=== PATIENT | female | born 1965 | race Caucasian/White ===

== ENCOUNTER 2017-12-08 11:57 | Emergency (ER) | payer MEDICARE, OTHER ==
[~2017-12-08] VITALS: Ht 167.6 cm; Wt 63.6 kg
[~2017-12-08 11:57] MED LIST: BACIO TP; BUPR-93 PO; BUSP15 PO; FLUT16H NASAL; HYDR25TA PO; LORA10TA7 PO; LUBI24CA2 PO; METO25 PO; MULT-29 GT; OMEG1CAP6 PO; PANT40TA25 PO; QUET100T PO
[2017-12-08 13:03] LABS: GLUCOSE,POINT OF CARE 94 MG/DL (70-110)
[2017-12-08] MEDS ORDERED: CLON.5 PO (13:16)
[2017-12-08] MEDS ORDERED: TRIH2TAB3 PO (13:16)
[2017-12-08] MEDS ORDERED: ASPI81TA42 PO (13:16)
[2017-12-08] MEDS ORDERED: TRAZ-147 PO (13:16)
[2017-12-08] MEDS ORDERED: AMANL PO (13:16)
[2017-12-08] MEDS ORDERED: GEMF600T3 PO (13:16)
[2017-12-08] MEDS ORDERED: LINA145C PO (13:16)
[2017-12-08] MEDS ORDERED: TAMO10 PO (13:16)
[2017-12-08 13:46] LABS: BASOPHILS % (AUTO) 0.5 % (0.0-2.0); EOSINOPHILS % (AUTO) 0.3 % (1.0-6.0); HEMATOCRIT 44.6 % (36-46); HEMOGLOBIN 15.7 g/dL (12.0-16.0); LYMPHOCYTES # (AUTO) 1.5 K/uL (1.0-4.8); LYMPHOCYTES % (AUTO) 15.3 % (22.0-44.0); MEAN CORPUSCULAR HEMOGLOBIN 30.1 pg (26.0-34.0); MEAN CORPUSCULAR HGB CONC 35.2 G/dL (31.0-37.0); MEAN CORPUSCULAR VOLUME 86 fL (80-100); MONOCYTES # (AUTO) 0.7 K/uL (0.1-1.0); MONOCYTES % (AUTO) 7.4 % (2.0-9.0); NEUTROPHILS # (AUTO) 7.5 K/uL (1.8-7.7); NEUTROPHILS % (AUTO) 76.5 % (40.0-70.0); PLATELET COUNT (AUTO) 234 K/uL (150-450); RED BLOOD CELL COUNT(AUTO) 5.21 MIL/uL (4.00-5.20); RED CELL DISTRIBUTION WIDTH 14.7 % (11.5-14.5)
[2017-12-08 14:06] LABS: ALBUMIN 3.7 g/dL (3.4-5.0); BILIRUBIN,TOTAL 0.5 mg/dL (0.1-1.0); CALCIUM, TOTAL 9.5 mg/dL (8.8-10.5); CREATININE 1.17 mg/dL (0.60-1.30); TOTAL PROTEIN, SERUM 7.8 g/dL (6.4-8.2)
[2017-12-08 14:12] LABS: POTASSIUM 2.9 mmol/L (3.5-5.1)
[2017-12-08 14:29] LABS: APPEARANCE,URINE CLOUDY (CLEAR); BILIRUBIN,URINE NEGATIVE (NEGATIVE); GLUCOSE, URINE (UA) NEGATIVE (NEGATIVE); KETONES,URINE NEGATIVE (NEGATIVE); LEUKOCYTE ESTERASE ,URINE SMALL (NEGATIVE); NITRATE,URINE NEGATIVE (NEGATIVE); OCCULT BLOOD,URINE LARGE (NEGATIVE); PH,URINE 6.5 (5.0-8.0); PROTEIN,URINE NEGATIVE (NEGATIVE); UROBILINOGEN,URINE 0.2 mg/dL (<=1.0)
[2017-12-08 14:42] LABS: BACTERIA,URINE Few /HPF (None Seen); SQUAMOUS EPITHELIAL CELL,UR Moderate /LPF (None Seen)
[2017-12-08 14:44] LABS: RBC,URINE 0-2 /HPF (0-2)
[2017-12-08] MEDS ORDERED: POTASSIUM CHLORIDE 20 MEQ ER TABLET PO ONE (15:30)
[2017-12-08] MEDS: POTASSIUM CHL 10 MEQ/WATER 50 ML IV SCH ×2 (15:59→17:03)
[2017-12-08] MEDS ORDERED: CloNIDine HCL 0.2 MG TABLET PO ONE (16:00)
[2017-12-08] MEDS ORDERED: SODIUM CHLORIDE 0.9% 250 ML IV ONE ×2 (16:07→17:02)
[2017-12-08 19:50] VITALS: BP 127/89
== END 2017-12-08 20:19 | disposition home or self-care (01) ==
LOC: EMS 12:02
DX: E87.6 Hypokalemia (principal); R53.1 Weakness; E78.00 Pure hypercholesterolemia, unspecified; F41.9 Anxiety disorder, unspecified; I10 Essential (primary) hypertension; Z79.82 Long term (current) use of aspirin; Z85.3 Personal history of malignant neoplasm of breast; Z88.0 Allergy status to penicillin; Z79.899 Other long term (current) drug therapy; F31.9 Bipolar disorder, unspecified
CPT/HCPCS: 36415; 80053; 81001; 82948; 82962; 83880; 84484; 85025; 87086; 93005; 96365; 99285; J3480; J7050

== ENCOUNTER 2017-12-10 14:51 | Inpatient (IN) | payer MEDICARE, MEDICAID ==
[~2017-12-10 14:51] MED LIST changes: +AMANL PO; +ASPI81TA42 PO; -BACIO TP; -BUPR-93 PO; +CLON.5 PO; +GEMF600T3 PO; -HYDR25TA PO; +LINA145C PO; -LUBI24CA2 PO; -MULT-29 GT; +MULT-29 PO; +TAMO10 PO; +TRAZ-147 PO; +TRIH2TAB3 PO
[2017-12-10 14:53] VITALS: BP 140/92
[2017-12-10] MEDS ORDERED: ZOLPIDEM TARTRATE 5 MG TABLET PO PRN (15:45)
[2017-12-10] MEDS: BusPIRone HCL 15 MG TABLET PO SCH (18:50)
[2017-12-10] MEDS: ClonazePAM 0.5 MG TABLET PO SCH (18:50)
[2017-12-10 19:15] VITALS: BP 148/98
[2017-12-10] MEDS ORDERED: PNEUMOCOCCAL VACCINE POLYVALENT 0.5 ML VIAL [PPSV23] IM ONE ×2 (19:30→20:15)
[2017-12-10] MEDS ORDERED: INFLUENZA VIRUS VACCINE QVS 2017-18 (3YR+)/PF 60 MCG/0.5 ML SYRINGE IM ONE (20:15)
[2017-12-10] MEDS: TraZODone HCL 100 MG TABLET PO SCH (20:21)
[2017-12-10] MEDS: QUEtiapine FUMARATE 200 MG TABLET PO SCH (20:21)
[2017-12-11 02:03] VITALS: BP 128/78
[2017-12-11 04:14] VITALS: BP 118/78
[2017-12-11] MEDS: LORazepam 0.5 MG TABLET PO PRN ×2 (04:25→23:37)
[2017-12-11] MEDS ORDERED: ACETAMINOPHEN 500 MG TABLET PO PRN (07:45)
[2017-12-11 08:20] LABS: BASOPHILS % (AUTO) 0.5 % (0.0-2.0); EOSINOPHILS % (AUTO) 1.1 % (1.0-6.0); HEMOGLOBIN 14.4 g/dL (12.0-16.0); LYMPHOCYTES # (AUTO) 1.2 K/uL (1.0-4.8); LYMPHOCYTES % (AUTO) 17.7 % (22.0-44.0); MEAN CORPUSCULAR HEMOGLOBIN 29.8 pg (26.0-34.0); MEAN CORPUSCULAR HGB CONC 34.3 G/dL (31.0-37.0); MEAN CORPUSCULAR VOLUME 87 fL (80-100); MONOCYTES # (AUTO) 0.6 K/uL (0.1-1.0); MONOCYTES % (AUTO) 9.5 % (2.0-9.0); NEUTROPHILS # (AUTO) 4.8 K/uL (1.8-7.7); NEUTROPHILS % (AUTO) 71.2 % (40.0-70.0); PLATELET COUNT (AUTO) 223 K/uL (150-450); RED BLOOD CELL COUNT(AUTO) 4.83 MIL/uL (4.00-5.20); RED CELL DISTRIBUTION WIDTH 14.8 % (11.5-14.5)
[2017-12-11 08:26] LABS: AMPHET/METH SCREEN,URINE NEGATIVE (NEGATIVE); BARBITURATE SCREEN, URINE NEGATIVE (NEGATIVE); BENZODIAZEPINES SCREEN,URINE NEGATIVE (NEGATIVE); CANNABINOID SCREEN,URINE NEGATIVE (NEGATIVE); COCAINE SCREEN,URINE NEGATIVE (NEGATIVE); METHADONE SCREEN, URINE NEGATIVE (NEGATIVE); OPIATE SCREEN,URINE NEGATIVE (NEGATIVE)
[2017-12-11 08:28] LABS: PHENCYCLIDINE SCREEN,URINE NEGATIVE (NEGATIVE)
[2017-12-11 08:41] VITALS: BP 119/89
[2017-12-11 08:45] LABS: ALBUMIN 3.5 g/dL (3.4-5.0); BILIRUBIN,TOTAL 0.4 mg/dL (0.1-1.0); CALCIUM, TOTAL 9.2 mg/dL (8.8-10.5); CHOL/HDL RATIO 4.3 (3.9-5.7); CREATININE 1.01 mg/dL (0.60-1.30); FREE T4 (FREE THYROXINE) 1.08 ng/dL (0.76-1.46); POTASSIUM 4.2 mmol/L (3.5-5.1); THYROID STIMULATING HORMONE 0.46 uIU/mL (0.36-3.74); TOTAL PROTEIN, SERUM 7.2 g/dL (6.4-8.2)
[2017-12-11] MEDS: ClonazePAM 0.5 MG TABLET PO SCH ×3 (08:53→17:00)
[2017-12-11] MEDS: BusPIRone HCL 15 MG TABLET PO SCH ×2 (08:53→17:00)
[2017-12-11] MEDS: ACETAMINOPHEN 325 MG TABLET PO PRN (08:54)
[2017-12-11 09:04] LABS: HEMOGLOBIN A1C 5.4 % (4.5-6.2)
[2017-12-11] MEDS: AMANTADINE HCL 100 MG CAPSULE PO SCH ×2 (11:00→17:00)
[2017-12-11 13:58] VITALS: BP 162/93
[2017-12-11] MEDS: IBUPROFEN 400 MG TABLET PO PRN (13:58)
[2017-12-11] MEDS: QUEtiapine FUMARATE 200 MG TABLET PO SCH (22:30)
[2017-12-11] MEDS: TraZODone HCL 100 MG TABLET PO SCH (22:30)
[2017-12-11 22:55] VITALS: BP 153/93
[2017-12-12 01:09] VITALS: BP 163/90
[2017-12-12 07:47] LABS: ANION GAP 9 mmol/L (8-16); CARBON DIOXIDE 23 mmol/L (22-29); CHLORIDE 109 mmol/L (98-107); CREATININE 0.89 mg/dL (0.60-1.30); GLOMERULAR FILTR. RATE CALC > 60 mL/min (>60); GLUCOSE,RANDOM 87 mg/dL (70-110); POTASSIUM 3.9 mmol/L (3.5-5.1); SODIUM SERUM 141 mmol/L (136-145); UREA NITROGEN, BLOOD 14 mg/dL (7-18)
[2017-12-12] MEDS: BusPIRone HCL 15 MG TABLET PO SCH ×2 (09:22→17:11)
[2017-12-12] MEDS: ClonazePAM 0.5 MG TABLET PO SCH ×3 (09:22→17:13)
[2017-12-12] MEDS: LISINOPRIL 10 MG TABLET PO SCH (09:22)
[2017-12-12] MEDS: AMANTADINE HCL 100 MG CAPSULE PO SCH ×2 (09:23→17:11)
[2017-12-12] MEDS: CEPHALEXIN MONOHYDRATE 500 MG CAPSULE PO SCH ×2 (09:23→17:12)
[2017-12-12 10:20] VITALS: BP 125/93
[2017-12-12] MEDS: DOCUSATE SODIUM 250 MG CAPSULE PO SCH (14:56)
[2017-12-12 16:04] VITALS: BP 138/88
[2017-12-12] MEDS ORDERED: OMEG-135 PO (17:03)
[2017-12-12] MEDS ORDERED: AMAN100C12 PO (17:03)
[2017-12-12] MEDS ORDERED: QUET200T PO (17:03)
[2017-12-12] MEDS: TAMOXIFEN CITRATE 10 MG TABLET PO SCH (18:19)
[2017-12-12] MEDS: QUEtiapine FUMARATE 200 MG TABLET PO SCH (20:43)
[2017-12-12] MEDS: TraZODone HCL 100 MG TABLET PO SCH (20:43)
[2017-12-13 06:22] VITALS: BP 112/67
[2017-12-13] MEDS: DOCUSATE SODIUM 250 MG CAPSULE PO SCH (07:41)
[2017-12-13] MEDS: LISINOPRIL 10 MG TABLET PO SCH (07:41)
[2017-12-13] MEDS: CEPHALEXIN MONOHYDRATE 500 MG CAPSULE PO SCH ×2 (07:41→16:30)
[2017-12-13] MEDS: ClonazePAM 0.5 MG TABLET PO SCH ×3 (07:42→16:30)
[2017-12-13] MEDS: BusPIRone HCL 15 MG TABLET PO SCH ×2 (07:42→16:30)
[2017-12-13] MEDS: AMANTADINE HCL 100 MG CAPSULE PO SCH ×2 (07:42→16:30)
[2017-12-13] MEDS: IBUPROFEN 400 MG TABLET PO PRN (07:44)
[2017-12-13] MEDS: QUEtiapine FUMARATE 100 MG TABLET PO PRN ×2 (07:52→13:53)
[2017-12-13] MEDS: LORazepam 0.5 MG TABLET PO PRN ×2 (07:52→19:27)
[2017-12-13] MEDS: TAMOXIFEN CITRATE 10 MG TABLET PO SCH (10:32)
[2017-12-13 10:42] VITALS: BP 127/87
[2017-12-13 16:03] VITALS: BP 137/75
[2017-12-13] MEDS: TraZODone HCL 100 MG TABLET PO SCH (20:51)
[2017-12-13] MEDS: QUEtiapine FUMARATE 200 MG TABLET PO SCH (20:51)
[2017-12-14 06:34] VITALS: BP 130/84
[2017-12-14] MEDS: ACETAMINOPHEN 325 MG TABLET PO PRN (06:50)
[2017-12-14] MEDS: AMANTADINE HCL 100 MG CAPSULE PO SCH ×2 (09:32→18:17)
[2017-12-14] MEDS: BusPIRone HCL 15 MG TABLET PO SCH ×2 (09:32→16:38)
[2017-12-14] MEDS: TAMOXIFEN CITRATE 10 MG TABLET PO SCH (09:33)
[2017-12-14] MEDS: ClonazePAM 0.5 MG TABLET PO SCH ×3 (09:36→16:38)
[2017-12-14] MEDS: DOCUSATE SODIUM 250 MG CAPSULE PO SCH (09:38)
[2017-12-14] MEDS: CEPHALEXIN MONOHYDRATE 500 MG CAPSULE PO SCH ×2 (09:38→16:39)
[2017-12-14] MEDS: LISINOPRIL 10 MG TABLET PO SCH (09:39)
[2017-12-14] MEDS: IBUPROFEN 400 MG TABLET PO PRN (09:52)
[2017-12-14] MEDS: LORazepam 0.5 MG TABLET PO PRN (11:30)
[2017-12-14] MEDS: QUEtiapine FUMARATE 100 MG TABLET PO PRN (11:34)
[2017-12-14] MEDS: MAGNESIUM CITRATE 300 ML ORAL SOLUTION PO PRN (12:16)
[2017-12-14 16:06] VITALS: BP 112/76
[2017-12-14] MEDS: QUEtiapine FUMARATE 200 MG TABLET PO SCH (20:25)
[2017-12-15] MEDS: CEPHALEXIN MONOHYDRATE 500 MG CAPSULE PO SCH ×2 (09:26→16:13)
[2017-12-15] MEDS: ClonazePAM 0.5 MG TABLET PO SCH ×3 (09:26→16:14)
[2017-12-15] MEDS: DOCUSATE SODIUM 250 MG CAPSULE PO SCH (09:28)
[2017-12-15] MEDS: BusPIRone HCL 15 MG TABLET PO SCH ×2 (09:29→16:14)
[2017-12-15] MEDS: TAMOXIFEN CITRATE 10 MG TABLET PO SCH (09:30)
[2017-12-15] MEDS: AMANTADINE HCL 100 MG CAPSULE PO SCH ×2 (09:31→16:14)
[2017-12-15] MEDS: LISINOPRIL 10 MG TABLET PO SCH (09:32)
[2017-12-15 13:34] VITALS: BP 119/60
[2017-12-15] MEDS: PROPRANOLOL HCL 10 MG TABLET PO SCH (16:14)
[2017-12-15 16:19] VITALS: BP 149/90
[2017-12-15] MEDS: QUEtiapine FUMARATE 200 MG TABLET PO SCH (20:34)
[2017-12-16] MEDS: QUEtiapine FUMARATE 100 MG TABLET PO PRN (08:35)
[2017-12-16] MEDS: ClonazePAM 0.5 MG TABLET PO SCH ×3 (08:39→17:18)
[2017-12-16] MEDS: DOCUSATE SODIUM 250 MG CAPSULE PO SCH (08:40)
[2017-12-16] MEDS: PROPRANOLOL HCL 10 MG TABLET PO SCH ×2 (08:41→17:18)
[2017-12-16] MEDS: BusPIRone HCL 15 MG TABLET PO SCH ×2 (08:41→17:19)
[2017-12-16] MEDS: CEPHALEXIN MONOHYDRATE 500 MG CAPSULE PO SCH ×2 (08:41→17:19)
[2017-12-16] MEDS: TAMOXIFEN CITRATE 10 MG TABLET PO SCH (08:42)
[2017-12-16] MEDS: LORazepam 0.5 MG TABLET PO PRN (08:44)
[2017-12-16] MEDS: LISINOPRIL 10 MG TABLET PO SCH (08:45)
[2017-12-16] MEDS: AMANTADINE HCL 100 MG CAPSULE PO SCH ×2 (08:45→17:18)
[2017-12-16 11:43] VITALS: BP 125/89
[2017-12-16] MEDS: IBUPROFEN 400 MG TABLET PO PRN (11:43)
[2017-12-16 16:00] VITALS: BP 131/72
[2017-12-16] MEDS: QUEtiapine FUMARATE 200 MG TABLET PO SCH (20:33)
[2017-12-17 04:32] VITALS: BP 130/89
[2017-12-17] MEDS ORDERED: GADOBUTROL 1 MMOL/ML 10 ML VIAL IVP ONE (08:18)
[2017-12-17] MEDS: PROPRANOLOL HCL 10 MG TABLET PO SCH (08:48)
[2017-12-17] MEDS: AMANTADINE HCL 100 MG CAPSULE PO SCH ×2 (08:48→16:29)
[2017-12-17] MEDS: LORazepam 0.5 MG TABLET PO PRN (08:48)
[2017-12-17] MEDS: BusPIRone HCL 15 MG TABLET PO SCH ×2 (08:48→16:29)
[2017-12-17] MEDS: TAMOXIFEN CITRATE 10 MG TABLET PO SCH (08:48)
[2017-12-17] MEDS: CEPHALEXIN MONOHYDRATE 500 MG CAPSULE PO SCH (08:48)
[2017-12-17] MEDS: DOCUSATE SODIUM 250 MG CAPSULE PO SCH (08:48)
[2017-12-17] MEDS: QUEtiapine FUMARATE 100 MG TABLET PO PRN (08:48)
[2017-12-17] MEDS: LISINOPRIL 10 MG TABLET PO SCH (08:49)
[2017-12-17] MEDS: ClonazePAM 0.5 MG TABLET PO SCH ×3 (08:49→16:29)
[2017-12-17] MEDS: ACETAMINOPHEN 325 MG TABLET PO PRN (08:55)
[2017-12-17 08:57] VITALS: BP 147/89
[2017-12-17] MEDS: PROPRANOLOL HCL 20 MG TABLET PO SCH (16:29)
[2017-12-17 17:00] VITALS: BP 138/81
[2017-12-17] MEDS: QUEtiapine FUMARATE 200 MG TABLET PO SCH (20:07)
[2017-12-18 05:35] VITALS: BP 157/93
[2017-12-18] MEDS: LORazepam 0.5 MG TABLET PO PRN ×2 (05:42→13:52)
[2017-12-18] MEDS: ACETAMINOPHEN 325 MG TABLET PO PRN (05:42)
[2017-12-18 08:18] VITALS: BP 171/101
[2017-12-18] MEDS: DOCUSATE SODIUM 250 MG CAPSULE PO SCH (08:18)
[2017-12-18] MEDS: LISINOPRIL 10 MG TABLET PO SCH (08:18)
[2017-12-18] MEDS: IBUPROFEN 400 MG TABLET PO PRN ×2 (08:18→16:34)
[2017-12-18] MEDS: PROPRANOLOL HCL 20 MG TABLET PO SCH ×2 (08:18→17:12)
[2017-12-18] MEDS: AMANTADINE HCL 100 MG CAPSULE PO SCH ×2 (08:18→17:12)
[2017-12-18] MEDS: TAMOXIFEN CITRATE 10 MG TABLET PO SCH (08:19)
[2017-12-18] MEDS: ClonazePAM 0.5 MG TABLET PO SCH ×3 (08:19→16:26)
[2017-12-18] MEDS: BusPIRone HCL 15 MG TABLET PO SCH ×2 (08:19→17:12)
[2017-12-18 09:18] VITALS: BP 154/88
[2017-12-18 16:33] VITALS: BP 138/84
[2017-12-18 17:33] VITALS: BP 134/77
[2017-12-18] MEDS: QUEtiapine FUMARATE 200 MG TABLET PO SCH (21:13)
[2017-12-18] MEDS ORDERED: QUEtiapine FUMARATE 200 MG TABLET PO ONE (21:30)
[2017-12-19 03:39] VITALS: BP 125/61
[2017-12-19 08:56] VITALS: BP 122/86
[2017-12-19] MEDS: BusPIRone HCL 15 MG TABLET PO SCH ×2 (10:56→16:48)
[2017-12-19] MEDS: TAMOXIFEN CITRATE 10 MG TABLET PO SCH (10:57)
[2017-12-19] MEDS: PROPRANOLOL HCL 20 MG TABLET PO SCH ×2 (10:57→16:48)
[2017-12-19] MEDS: AMANTADINE HCL 100 MG CAPSULE PO SCH ×2 (10:57→16:48)
[2017-12-19] MEDS: ClonazePAM 0.5 MG TABLET PO SCH ×3 (10:59→16:48)
[2017-12-19] MEDS: LISINOPRIL 10 MG TABLET PO SCH (10:59)
[2017-12-19] MEDS: DOCUSATE SODIUM 250 MG CAPSULE PO SCH (10:59)
[2017-12-19] MEDS: IBUPROFEN 400 MG TABLET PO PRN (14:12)
[2017-12-19 16:30] VITALS: BP 123/69
[2017-12-19 17:30] VITALS: BP 128/72
[2017-12-19] MEDS: QUEtiapine FUMARATE 200 MG TABLET PO SCH (20:23)
[2017-12-20] MEDS: ClonazePAM 0.5 MG TABLET PO SCH ×3 (08:38→17:32)
[2017-12-20] MEDS: TAMOXIFEN CITRATE 10 MG TABLET PO SCH (08:38)
[2017-12-20] MEDS: AMANTADINE HCL 100 MG CAPSULE PO SCH ×2 (08:38→17:32)
[2017-12-20] MEDS: LISINOPRIL 10 MG TABLET PO SCH (08:38)
[2017-12-20] MEDS: PROPRANOLOL HCL 20 MG TABLET PO SCH ×2 (08:38→17:32)
[2017-12-20] MEDS: BusPIRone HCL 15 MG TABLET PO SCH ×2 (08:39→17:32)
[2017-12-20 08:45] VITALS: BP 131/92
[2017-12-20] MEDS: ACETAMINOPHEN 325 MG TABLET PO PRN (08:46)
[2017-12-20] MEDS: MAGNESIUM CITRATE 300 ML ORAL SOLUTION PO PRN (08:46)
[2017-12-20] MEDS: DOCUSATE SODIUM 250 MG CAPSULE PO SCH (09:00)
[2017-12-20 16:04] VITALS: BP 125/83
[2017-12-20] MEDS: QUEtiapine FUMARATE 200 MG TABLET PO SCH (20:50)
[2017-12-21] MEDS: TAMOXIFEN CITRATE 10 MG TABLET PO SCH (08:58)
[2017-12-21] MEDS: ClonazePAM 0.5 MG TABLET PO SCH ×3 (08:58→18:00)
[2017-12-21] MEDS: AMANTADINE HCL 100 MG CAPSULE PO SCH ×2 (08:59→18:00)
[2017-12-21] MEDS: PROPRANOLOL HCL 20 MG TABLET PO SCH ×2 (08:59→18:00)
[2017-12-21] MEDS: LISINOPRIL 10 MG TABLET PO SCH (08:59)
[2017-12-21] MEDS: BusPIRone HCL 15 MG TABLET PO SCH ×2 (08:59→18:00)
[2017-12-21 09:00] VITALS: BP 149/63
[2017-12-21] MEDS: IBUPROFEN 400 MG TABLET PO PRN (09:05)
[2017-12-21] MEDS: DOCUSATE SODIUM 250 MG CAPSULE PO SCH (09:05)
[2017-12-21 16:28] VITALS: BP 123/76
[2017-12-21] MEDS: QUEtiapine FUMARATE 200 MG TABLET PO SCH (20:12)
[2017-12-22 03:54] VITALS: BP 127/76
[2017-12-22] MEDS: LORazepam 0.5 MG TABLET PO PRN (03:58)
[2017-12-22] MEDS: IBUPROFEN 600 MG TABLET PO PRN ×2 (03:58→17:25)
[2017-12-22] MEDS: TAMOXIFEN CITRATE 10 MG TABLET PO SCH (07:02)
[2017-12-22] MEDS: BusPIRone HCL 15 MG TABLET PO SCH ×2 (07:02→17:22)
[2017-12-22] MEDS: AMANTADINE HCL 100 MG CAPSULE PO SCH ×2 (07:03→17:22)
[2017-12-22] MEDS: PROPRANOLOL HCL 20 MG TABLET PO SCH ×2 (07:03→17:22)
[2017-12-22] MEDS: LISINOPRIL 10 MG TABLET PO SCH (07:03)
[2017-12-22] MEDS: DOCUSATE SODIUM 250 MG CAPSULE PO SCH (07:03)
[2017-12-22] MEDS: ClonazePAM 0.5 MG TABLET PO SCH ×3 (07:04→17:20)
[2017-12-22 09:38] VITALS: BP 111/76
[2017-12-22 17:25] VITALS: BP 167/85
[2017-12-22] MEDS: QUEtiapine FUMARATE 200 MG TABLET PO SCH (20:40)
[2017-12-23 06:31] VITALS: BP 113/72
[2017-12-23] MEDS: PROPRANOLOL HCL 20 MG TABLET PO SCH ×2 (06:47→17:00)
[2017-12-23] MEDS: AMANTADINE HCL 100 MG CAPSULE PO SCH ×2 (06:47→17:00)
[2017-12-23] MEDS: LISINOPRIL 10 MG TABLET PO SCH (06:47)
[2017-12-23] MEDS: ClonazePAM 0.5 MG TABLET PO SCH ×3 (06:47→16:59)
[2017-12-23] MEDS: TAMOXIFEN CITRATE 10 MG TABLET PO SCH (06:47)
[2017-12-23] MEDS: BusPIRone HCL 15 MG TABLET PO SCH ×2 (06:47→17:00)
[2017-12-23] MEDS: DOCUSATE SODIUM 250 MG CAPSULE PO SCH (06:47)
[2017-12-23 08:00] VITALS: BP 123/74
[2017-12-23] MEDS: IBUPROFEN 600 MG TABLET PO PRN ×2 (08:04→14:23)
[2017-12-23 08:31] VITALS: BP 123/74
[2017-12-23 16:40] VITALS: BP 147/90
[2017-12-23] MEDS: QUEtiapine FUMARATE 200 MG TABLET PO SCH (20:23)
[2017-12-24] MEDS: BusPIRone HCL 15 MG TABLET PO SCH ×2 (06:59→17:39)
[2017-12-24] MEDS: TAMOXIFEN CITRATE 10 MG TABLET PO SCH (06:59)
[2017-12-24] MEDS: AMANTADINE HCL 100 MG CAPSULE PO SCH ×2 (07:00→17:39)
[2017-12-24] MEDS: ClonazePAM 0.5 MG TABLET PO SCH ×3 (07:00→17:39)
[2017-12-24] MEDS: DOCUSATE SODIUM 250 MG CAPSULE PO SCH (07:00)
[2017-12-24 09:25] VITALS: BP 108/85
[2017-12-24] MEDS: PROPRANOLOL HCL 10 MG TABLET PO SCH ×2 (09:30→17:39)
[2017-12-24] MEDS: LISINOPRIL 20 MG TABLET PO SCH (09:30)
[2017-12-24] MEDS: ACETAMINOPHEN 325 MG TABLET PO PRN (09:31)
[2017-12-24] MEDS: QUEtiapine FUMARATE 100 MG TABLET PO PRN (14:00)
[2017-12-24] MEDS: IBUPROFEN 600 MG TABLET PO PRN (14:01)
[2017-12-24 18:30] VITALS: BP 143/65
[2017-12-24] MEDS: QUEtiapine FUMARATE 200 MG TABLET PO SCH (20:08)
[2017-12-25 03:09] VITALS: BP 99/62
[2017-12-25 05:15] VITALS: BP 124/77
[2017-12-25] MEDS: QUEtiapine FUMARATE 100 MG TABLET PO PRN (05:19)
[2017-12-25] MEDS: IBUPROFEN 600 MG TABLET PO PRN (05:19)
[2017-12-25] MEDS: ClonazePAM 0.5 MG TABLET PO SCH ×3 (06:28→16:26)
[2017-12-25] MEDS: DOCUSATE SODIUM 250 MG CAPSULE PO SCH (06:28)
[2017-12-25] MEDS: AMANTADINE HCL 100 MG CAPSULE PO SCH ×2 (06:28→16:26)
[2017-12-25] MEDS: BusPIRone HCL 15 MG TABLET PO SCH ×2 (06:28→16:27)
[2017-12-25] MEDS: TAMOXIFEN CITRATE 10 MG TABLET PO SCH (06:29)
[2017-12-25] MEDS: PROPRANOLOL HCL 10 MG TABLET PO SCH ×2 (09:09→16:26)
[2017-12-25] MEDS: LISINOPRIL 20 MG TABLET PO SCH (09:09)
[2017-12-25 09:18] VITALS: BP 114/81
[2017-12-25 16:47] VITALS: BP 138/97
[2017-12-25] MEDS: QUEtiapine FUMARATE 200 MG TABLET PO SCH (20:20)
[2017-12-26] MEDS: ClonazePAM 0.5 MG TABLET PO SCH ×3 (06:56→16:13)
[2017-12-26] MEDS: DOCUSATE SODIUM 250 MG CAPSULE PO SCH (06:56)
[2017-12-26] MEDS: TAMOXIFEN CITRATE 10 MG TABLET PO SCH (06:56)
[2017-12-26] MEDS: AMANTADINE HCL 100 MG CAPSULE PO SCH ×2 (06:56→16:13)
[2017-12-26] MEDS: BusPIRone HCL 15 MG TABLET PO SCH ×2 (06:56→16:13)
[2017-12-26 08:46] VITALS: BP 141/79
[2017-12-26 09:05] VITALS: BP 141/79
[2017-12-26] MEDS: LISINOPRIL 20 MG TABLET PO SCH (09:09)
[2017-12-26] MEDS: PROPRANOLOL HCL 10 MG TABLET PO SCH ×2 (09:09→16:14)
[2017-12-26] MEDS: IBUPROFEN 600 MG TABLET PO PRN ×2 (09:09→16:13)
[2017-12-26 16:13] VITALS: BP 132/68
[2017-12-26 17:46] VITALS: BP 148/99
[2017-12-26] MEDS: QUEtiapine FUMARATE 200 MG TABLET PO SCH (20:07)
[2017-12-27] MEDS: AMANTADINE HCL 100 MG CAPSULE PO SCH ×2 (07:16→16:18)
[2017-12-27] MEDS: DOCUSATE SODIUM 250 MG CAPSULE PO SCH (07:16)
[2017-12-27] MEDS: ClonazePAM 0.5 MG TABLET PO SCH ×3 (07:16→16:38)
[2017-12-27] MEDS: BusPIRone HCL 10 MG TABLET PO SCH ×2 (07:17→16:18)
[2017-12-27] MEDS: TAMOXIFEN CITRATE 10 MG TABLET PO SCH (07:17)
[2017-12-27] MEDS: LISINOPRIL 20 MG TABLET PO SCH (07:18)
[2017-12-27] MEDS: PROPRANOLOL HCL 10 MG TABLET PO SCH ×2 (07:18→16:18)
[2017-12-27 09:22] VITALS: BP 122/72
[2017-12-27] MEDS: IBUPROFEN 600 MG TABLET PO PRN (16:39)
[2017-12-27 16:40] VITALS: BP 146/98
[2017-12-27] MEDS: QUEtiapine FUMARATE 200 MG TABLET PO SCH (20:10)
[2017-12-27] MEDS: ACETAMINOPHEN 325 MG TABLET PO PRN (20:32)
[2017-12-27 20:33] VITALS: BP 132/78
[2017-12-28] MEDS: PROPRANOLOL HCL 10 MG TABLET PO SCH ×2 (07:19→16:56)
[2017-12-28] MEDS: ClonazePAM 0.5 MG TABLET PO SCH ×3 (07:20→16:56)
[2017-12-28] MEDS: DOCUSATE SODIUM 250 MG CAPSULE PO SCH (07:20)
[2017-12-28] MEDS: LISINOPRIL 20 MG TABLET PO SCH (07:20)
[2017-12-28] MEDS: AMANTADINE HCL 100 MG CAPSULE PO SCH ×2 (07:20→16:57)
[2017-12-28] MEDS: TAMOXIFEN CITRATE 10 MG TABLET PO SCH (07:24)
[2017-12-28] MEDS: BusPIRone HCL 10 MG TABLET PO SCH ×2 (07:24→16:56)
[2017-12-28 07:26] VITALS: BP 118/78
[2017-12-28 08:48] VITALS: BP 113/80
[2017-12-28] MEDS: ACETAMINOPHEN 325 MG TABLET PO PRN (11:08)
[2017-12-28 16:17] VITALS: BP 141/85
[2017-12-28] MEDS: QUEtiapine FUMARATE 200 MG TABLET PO SCH (20:19)
[2017-12-29] MEDS ORDERED: AMAN100C12 PO (01:03)
[2017-12-29] MEDS ORDERED: BUSP10TA23 PO (01:04)
[2017-12-29] MEDS ORDERED: CLON.5 PO (01:05)
[2017-12-29] MEDS ORDERED: DOCU250C91 PO (01:07)
[2017-12-29] MEDS ORDERED: LISI-662 PO (01:08)
[2017-12-29] MEDS ORDERED: PROP10TA73 PO ×2 (01:09→01:17)
[2017-12-29] MEDS ORDERED: QUET200T PO (01:18)
[2017-12-29] MEDS ORDERED: TAMO10 PO (01:20)
[2017-12-29] MEDS: LISINOPRIL 20 MG TABLET PO SCH (06:23)
[2017-12-29] MEDS: ClonazePAM 0.5 MG TABLET PO SCH (06:23)
[2017-12-29] MEDS: BusPIRone HCL 10 MG TABLET PO SCH (06:24)
[2017-12-29] MEDS: PROPRANOLOL HCL 10 MG TABLET PO SCH (06:24)
[2017-12-29] MEDS: AMANTADINE HCL 100 MG CAPSULE PO SCH (06:24)
[2017-12-29] MEDS: TAMOXIFEN CITRATE 10 MG TABLET PO SCH (06:25)
[2017-12-29] MEDS: DOCUSATE SODIUM 250 MG CAPSULE PO SCH (06:25)
[2017-12-29 06:30] VITALS: BP 128/87
[2017-12-29 08:30] VITALS: BP 102/74
== END 2017-12-29 08:50 | disposition home or self-care (01) | DRG 885 ==
LOC: B2S 17:11 → 3EI 12-11 22:22
PROVIDERS: ADMIT Psychiatry & Neurology Psychiatry; ATTEND Psychiatry & Neurology Psychiatry
DX: F31.5 Bipolar disorder, current episode depressed, severe, with psychotic features (principal); R45.851 Suicidal ideations; Z91.19 Patient's noncompliance with other medical treatment and regimen; N39.0 Urinary tract infection, site not specified; E78.5 Hyperlipidemia, unspecified; N18.9 Chronic kidney disease, unspecified; K59.00 Constipation, unspecified; I12.9 Hypertensive chronic kidney disease with stage 1 through stage 4 chronic kidney disease, or unspecified chronic kidney disease; G47.00 Insomnia, unspecified; F31.9 Bipolar disorder, unspecified; Z85.3 Personal history of malignant neoplasm of breast; Z99.3 Dependence on wheelchair
CPT/HCPCS: 70553; 80307; 83036; 84439; 84443; 90471; 97110; 97112; 97116; 97161; 97165; 97530; 97535; A9585

== ENCOUNTER 2017-12-11 15:16 | Emergency (ER) | payer MEDICARE, OTHER ==
[~2017-12-11] VITALS: Ht 162.6 cm; Wt 61.3 kg
[2017-12-11] MEDS ORDERED: 0.9% SODIUM CHLORIDE 10 ML SYRINGE IVP PRN (15:45)
[2017-12-11] MEDS ORDERED: ACETAMINOPHEN 325 MG TABLET PO ONE (15:45)
[2017-12-11 17:02] LABS: BASOPHILS % (AUTO) 0.9 % (0.0-2.0); EOSINOPHILS % (AUTO) 1.1 % (1.0-6.0); HEMATOCRIT 40.2 % (36-46); HEMOGLOBIN 13.9 g/dL (12.0-16.0); LYMPHOCYTES # (AUTO) 1.3 K/uL (1.0-4.8); LYMPHOCYTES % (AUTO) 17.7 % (22.0-44.0); MEAN CORPUSCULAR HEMOGLOBIN 29.8 pg (26.0-34.0); MEAN CORPUSCULAR HGB CONC 34.5 G/dL (31.0-37.0); MEAN CORPUSCULAR VOLUME 86 fL (80-100); MONOCYTES # (AUTO) 0.6 K/uL (0.1-1.0); MONOCYTES % (AUTO) 8.9 % (2.0-9.0); NEUTROPHILS # (AUTO) 5.2 K/uL (1.8-7.7); NEUTROPHILS % (AUTO) 71.4 % (40.0-70.0); PLATELET COUNT (AUTO) 219 K/uL (150-450); RED BLOOD CELL COUNT(AUTO) 4.66 MIL/uL (4.00-5.20); RED CELL DISTRIBUTION WIDTH 14.6 % (11.5-14.5)
[2017-12-11 17:03] LABS: APPEARANCE,URINE CLOUDY (CLEAR); BILIRUBIN,URINE NEGATIVE (NEGATIVE); GLUCOSE, URINE (UA) NEGATIVE (NEGATIVE); KETONES,URINE NEGATIVE (NEGATIVE); LEUKOCYTE ESTERASE ,URINE MODERATE (NEGATIVE); NITRATE,URINE NEGATIVE (NEGATIVE); OCCULT BLOOD,URINE LARGE (NEGATIVE); PH,URINE 7.5 (5.0-8.0); PROTEIN,URINE NEGATIVE (NEGATIVE)
[2017-12-11 17:13] LABS: ANION GAP 12 mmol/L (8-16); CALCIUM, TOTAL 8.9 mg/dL (8.8-10.5); CARBON DIOXIDE 20 mmol/L (22-29); CHLORIDE 108 mmol/L (98-107); CREATININE 0.94 mg/dL (0.60-1.30); GLOMERULAR FILTR. RATE CALC > 60 mL/min (>60); GLUCOSE,RANDOM 120 mg/dL (70-110); POTASSIUM 3.6 mmol/L (3.5-5.1); SODIUM SERUM 140 mmol/L (136-145); UREA NITROGEN, BLOOD 17 mg/dL (7-18)
[2017-12-11 17:15] LABS: RBC,URINE 0-2 /HPF (0-2)
[2017-12-11 17:16] LABS: BACTERIA,URINE Few /HPF (None Seen); SQUAMOUS EPITHELIAL CELL,UR Few /LPF (None Seen)
[2017-12-11 17:21] LABS: LACTIC ACID 1.1 mmol/L (0.4-2.0)
[2017-12-11 17:23] LABS: PROTHROMBIN TIME 10.7 SEC (9.4-11.6)
[2017-12-11 17:27] LABS: B-TYPE NATRIURETIC PEPTIDE < 5 pg/mL (0-100)
[2017-12-11 17:37] LABS: ALANINE AMINOTRANSFERASE 44 U/L (12-78); ALBUMIN 3.4 g/dL (3.4-5.0); ALKALINE PHOSPHATASE 87 U/L (46-116); ASPARTATE AMINOTRANSFERASE 18 U/L (15-37); BILIRUBIN,TOTAL 0.4 mg/dL (0.1-1.0); CREATINE KINASE MB 0.9 ng/mL (0-5); CREATINE KINASE, TOTAL 77 U/L (26-192); TOTAL PROTEIN, SERUM 6.9 g/dL (6.4-8.2)
[2017-12-11 18:16] LABS: INFLUENZA TYPE A NEGATIVE FOR TYPE A (NEGATIVE); INFLUENZA TYPE B NEGATIVE FOR TYPE B (NEGATIVE)
[2017-12-11 20:59] VITALS: BP 155/93
[2017-12-12] MEDS ORDERED: OMEG-135 PO (17:03)
[2017-12-12] MEDS ORDERED: AMAN100C12 PO (17:03)
[2017-12-12] MEDS ORDERED: QUET200T PO (17:03)
== END 2017-12-11 22:08 | disposition other institution (70) ==
LOC: EMS 15:18
DX: N39.0 Urinary tract infection, site not specified (principal); F32.9 Major depressive disorder, single episode, unspecified; R51 Headache; F41.9 Anxiety disorder, unspecified; F31.9 Bipolar disorder, unspecified; E78.00 Pure hypercholesterolemia, unspecified; I10 Essential (primary) hypertension; Z85.3 Personal history of malignant neoplasm of breast; Z88.0 Allergy status to penicillin; Z79.82 Long term (current) use of aspirin
CPT/HCPCS: 70450; 83605; 87040; 87086; 87804; 93005; 99285

== ENCOUNTER 2018-04-06 08:11 | Inpatient (IN) | payer MEDICARE, MEDICAID ==
[~2018-04-06] VITALS: Ht 162.6 cm; Wt 53.9 kg
[~2018-04-06 08:11] MED LIST changes: +AMAN100C12 PO; -AMANL PO; -ASPI81TA42 PO; +BUSP10TA23 PO; -BUSP15 PO; +DOCU250C91 PO; -FLUT16H NASAL; -GEMF600T3 PO; -LINA145C PO; +LISI-662 PO; -LORA10TA7 PO; -METO25 PO; -MULT-29 PO; -OMEG1CAP6 PO; -PANT40TA25 PO; +PROP10TA73 PO; -QUET100T PO; +QUET200T PO; -TRAZ-147 PO; -TRIH2TAB3 PO
[2018-04-06 08:42] LABS: BASOPHILS % (AUTO) 0.6 % (0.0-2.0); EOSINOPHILS % (AUTO) 0.7 % (1.0-6.0); HEMATOCRIT 41.3 % (36-46); HEMOGLOBIN 14.8 g/dL (12.0-16.0); LYMPHOCYTES % (AUTO) 12.6 % (22.0-44.0); MEAN CORPUSCULAR HEMOGLOBIN 33.5 pg (26.0-34.0); MEAN CORPUSCULAR HGB CONC 35.8 G/dL (31.0-37.0); MEAN CORPUSCULAR VOLUME 94 fL (80-100); MONOCYTES # (AUTO) 0.9 K/uL (0.1-1.0); NEUTROPHILS # (AUTO) 5.7 K/uL (1.8-7.7); NEUTROPHILS % (AUTO) 74.1 % (40.0-70.0); PLATELET COUNT (AUTO) 242 K/uL (150-450); RED BLOOD CELL COUNT(AUTO) 4.41 MIL/uL (4.00-5.20); RED CELL DISTRIBUTION WIDTH 14.5 % (11.5-14.5)
[2018-04-06 08:54] LABS: ANION GAP 14 mmol/L (8-16); CALCIUM, TOTAL 9.5 mg/dL (8.8-10.5); CARBON DIOXIDE 22 mmol/L (22-29); CHLORIDE 105 mmol/L (98-107); CREATININE 1.35 mg/dL (0.60-1.30); GLOMERULAR FILTR. RATE CALC 41 mL/min (>60); GLUCOSE,RANDOM 108 mg/dL (70-110); POTASSIUM 3.5 mmol/L (3.5-5.1); SODIUM SERUM 141 mmol/L (136-145); UREA NITROGEN, BLOOD 24 mg/dL (7-18)
[2018-04-06 09:01] LABS: ALANINE AMINOTRANSFERASE 67 U/L (12-78); ALBUMIN 4.1 g/dL (3.4-5.0); ALKALINE PHOSPHATASE 85 U/L (46-116); ASPARTATE AMINOTRANSFERASE 47 U/L (15-37); BILIRUBIN,TOTAL 0.5 mg/dL (0.1-1.0); TOTAL PROTEIN, SERUM 7.9 g/dL (6.4-8.2)
[2018-04-06 09:45] LABS: AMPHET/METH SCREEN,URINE NEGATIVE (NEGATIVE); BARBITURATE SCREEN, URINE NEGATIVE (NEGATIVE); BENZODIAZEPINES SCREEN,URINE POSITIVE (NEGATIVE); CANNABINOID SCREEN,URINE NEGATIVE (NEGATIVE); COCAINE SCREEN,URINE NEGATIVE (NEGATIVE); METHADONE SCREEN, URINE NEGATIVE (NEGATIVE); OPIATE SCREEN,URINE NEGATIVE (NEGATIVE)
[2018-04-06 09:47] LABS: PHENCYCLIDINE SCREEN,URINE NEGATIVE (NEGATIVE)
[2018-04-06] MEDS ORDERED: DiphenhydrAMINE HCL 50 MG/ML VIAL IM ONE (10:30)
[2018-04-06] MEDS ORDERED: HALOPERIDOL LACTATE 5 MG/ML VIAL IM ONE (10:30)
[2018-04-06] MEDS ORDERED: LORazepam 2 MG/ML VIAL IM ONE (10:30)
[2018-04-06] MEDS ORDERED: ZOLPIDEM TARTRATE 10 MG TABLET PO PRN (11:00)
[2018-04-06] MEDS ORDERED: QUEtiapine FUMARATE 100 MG TABLET PO PRN (11:00)
[2018-04-06 19:24] VITALS: BP 148/88
[2018-04-06] MEDS ORDERED: ChlordiazePOXIDE HCL 25 MG CAPSULE PO PRN (20:15)
[2018-04-06] MEDS: ESZOPICLONE 2 MG TABLET PO PRN (20:35)
[2018-04-06 23:20] VITALS: BP 138/78
[2018-04-07] VITALS (8 sets, daily range): BP systolic 108–152; BP diastolic 70–93
[2018-04-07 08:50] LABS: FREE T4 (FREE THYROXINE) 1.07 ng/dL (0.76-1.46); THYROID STIMULATING HORMONE 0.41 uIU/mL (0.36-3.74)
[2018-04-07] MEDS: LISINOPRIL 20 MG TABLET PO SCH (08:56)
[2018-04-07] MEDS: PROPRANOLOL HCL 10 MG TABLET PO SCH ×2 (08:56→16:52)
[2018-04-07] MEDS: DOCUSATE SODIUM 250 MG CAPSULE PO SCH (08:57)
[2018-04-07] MEDS: MULTIVITAMINS, THERAPEUTIC TABLET PO SCH (08:57)
[2018-04-07] MEDS: FOLIC ACID 1 MG TABLET PO SCH (08:57)
[2018-04-07] MEDS: THIAMINE HCL 100 MG TABLET PO SCH (08:57)
[2018-04-07] MEDS: AMANTADINE HCL 100 MG CAPSULE PO SCH ×2 (08:58→16:52)
[2018-04-07] MEDS: TAMOXIFEN CITRATE 10 MG TABLET PO SCH (08:58)
[2018-04-07] MEDS: LORazepam 2 MG TABLET PO PRN ×2 (09:01→16:52)
[2018-04-07] MEDS: QUEtiapine FUMARATE 200 MG TABLET PO SCH (20:48)
[2018-04-07] MEDS: ESZOPICLONE 2 MG TABLET PO PRN (20:48)
[2018-04-08 00:20] VITALS: BP 124/88
[2018-04-08 01:58] VITALS: BP 140/78
[2018-04-08] MEDS: FOLIC ACID 1 MG TABLET PO SCH (08:03)
[2018-04-08] MEDS: ClonazePAM 0.5 MG TABLET PO SCH ×2 (08:04→16:28)
[2018-04-08] MEDS: THIAMINE HCL 100 MG TABLET PO SCH (08:05)
[2018-04-08] MEDS: LISINOPRIL 20 MG TABLET PO SCH (08:05)
[2018-04-08] MEDS: DOCUSATE SODIUM 250 MG CAPSULE PO SCH (08:05)
[2018-04-08] MEDS: PROPRANOLOL HCL 10 MG TABLET PO SCH ×2 (08:05→16:28)
[2018-04-08] MEDS: AMANTADINE HCL 100 MG CAPSULE PO SCH ×2 (08:05→16:27)
[2018-04-08] MEDS: MULTIVITAMINS, THERAPEUTIC TABLET PO SCH (08:05)
[2018-04-08] MEDS: TAMOXIFEN CITRATE 10 MG TABLET PO SCH (08:05)
[2018-04-08 08:20] VITALS: BP 112/77
[2018-04-08 08:39] VITALS: BP 112/77
[2018-04-08 16:23] VITALS: BP 128/79
[2018-04-08] MEDS: ESZOPICLONE 2 MG TABLET PO PRN (20:28)
[2018-04-08] MEDS: QUEtiapine FUMARATE 200 MG TABLET PO SCH (20:28)
[2018-04-09 06:40] VITALS: BP 123/89
[2018-04-09] MEDS: FOLIC ACID 1 MG TABLET PO SCH (08:12)
[2018-04-09] MEDS: PROPRANOLOL HCL 10 MG TABLET PO SCH (08:13)
[2018-04-09] MEDS: AMANTADINE HCL 100 MG CAPSULE PO SCH (08:13)
[2018-04-09] MEDS: LISINOPRIL 20 MG TABLET PO SCH (08:13)
[2018-04-09] MEDS: TAMOXIFEN CITRATE 10 MG TABLET PO SCH (08:13)
[2018-04-09] MEDS: MULTIVITAMINS, THERAPEUTIC TABLET PO SCH (08:13)
[2018-04-09] MEDS: ClonazePAM 0.5 MG TABLET PO SCH (08:13)
[2018-04-09] MEDS: DOCUSATE SODIUM 250 MG CAPSULE PO SCH (08:13)
[2018-04-09] MEDS: THIAMINE HCL 100 MG TABLET PO SCH (08:13)
[2018-04-09 08:37] VITALS: BP 119/82
== END 2018-04-09 12:30 | disposition home or self-care (01) | DRG 885 ==
LOC: EMS 08:13 → B3A 17:35
PROVIDERS: ADMIT Psychiatry & Neurology Psychiatry; ATTEND Psychiatry & Neurology Psychiatry
DX: F31.64 Bipolar disorder, current episode mixed, severe, with psychotic features (principal); R45.851 Suicidal ideations; E78.00 Pure hypercholesterolemia, unspecified; F10.10 Alcohol abuse, uncomplicated; G47.00 Insomnia, unspecified; I12.9 Hypertensive chronic kidney disease with stage 1 through stage 4 chronic kidney disease, or unspecified chronic kidney disease; K21.9 Gastro-esophageal reflux disease without esophagitis; N18.9 Chronic kidney disease, unspecified; Z79.899 Other long term (current) drug therapy; Z85.3 Personal history of malignant neoplasm of breast; Z92.21 Personal history of antineoplastic chemotherapy; Z88.0 Allergy status to penicillin
CPT/HCPCS: 84439; 84443; 96372; 99285; G0480; J1200; J1630; J2060

== ENCOUNTER 2018-04-21 18:06 | Inpatient (IN) | payer MEDICARE, MEDICAID ==
[~2018-04-21] VITALS: Ht 167.6 cm; Wt 51.0 kg
[~2018-04-21 18:06] MED LIST changes: -BUSP10TA23 PO; -CLON.5 PO; -QUET200T PO
[2018-04-21 19:20] LABS: BASOPHILS % (AUTO) 0.2 % (0.0-2.0); EOSINOPHILS % (AUTO) 0 % (1.0-6.0); HEMATOCRIT 37.6 % (36-46); HEMOGLOBIN 13.1 g/dL (12.0-16.0); LYMPHOCYTES # (AUTO) 0.6 K/uL (1.0-4.8); LYMPHOCYTES % (AUTO) 5.4 % (22.0-44.0); MEAN CORPUSCULAR HEMOGLOBIN 32.6 pg (26.0-34.0); MEAN CORPUSCULAR HGB CONC 34.7 G/dL (31.0-37.0); MEAN CORPUSCULAR VOLUME 94 fL (80-100); MONOCYTES # (AUTO) 1.3 K/uL (0.1-1.0); MONOCYTES % (AUTO) 10.6 % (2.0-9.0); NEUTROPHILS # (AUTO) 9.9 K/uL (1.8-7.7); NEUTROPHILS % (AUTO) 83.8 % (40.0-70.0); PLATELET COUNT (AUTO) 260 K/uL (150-450); RED BLOOD CELL COUNT(AUTO) 4.01 MIL/uL (4.00-5.20); RED CELL DISTRIBUTION WIDTH 13.8 % (11.5-14.5)
[2018-04-21 19:30] LABS: ANION GAP 10 mmol/L (8-16); CALCIUM, TOTAL 9.6 mg/dL (8.8-10.5); CARBON DIOXIDE 21 mmol/L (22-29); CHLORIDE 111 mmol/L (98-107); CREATININE 1.14 mg/dL (0.60-1.30); GLOMERULAR FILTR. RATE CALC 50 mL/min (>60); GLUCOSE,RANDOM 86 mg/dL (70-110); POTASSIUM 3.3 mmol/L (3.5-5.1); SODIUM SERUM 142 mmol/L (136-145); UREA NITROGEN, BLOOD 28 mg/dL (7-18)
[2018-04-21 19:35] LABS: ALANINE AMINOTRANSFERASE 72 U/L (12-78); ALBUMIN 3.8 g/dL (3.4-5.0); ALKALINE PHOSPHATASE 70 U/L (46-116); ASPARTATE AMINOTRANSFERASE 62 U/L (15-37); BILIRUBIN,TOTAL 0.7 mg/dL (0.1-1.0); TOTAL PROTEIN, SERUM 7.1 g/dL (6.4-8.2)
[2018-04-21] MEDS ORDERED: QUEtiapine FUMARATE 100 MG TABLET PO ONE (22:15)
[2018-04-21] MEDS ORDERED: DiphenhydrAMINE HCL 25 MG CAPSULE PO ONE (22:15)
[2018-04-21] MEDS ORDERED: LORazepam 2 MG TABLET PO ONE (22:15)
[2018-04-21] MEDS ORDERED: ChlorproMAZINE HCL 25 MG TABLET PO PRN (22:30)
[2018-04-22] MEDS ORDERED: POTASSIUM CHLORIDE 20 MEQ ER TABLET PO ONE (00:15)
[2018-04-22 01:52] VITALS: BP 118/71
[2018-04-22] MEDS ORDERED: -PHARMACY VACCINE NOTE- MISC ONE (02:30)
[2018-04-22] MEDS ORDERED: PNEUMOCOCCAL VACCINE POLYVALENT 0.5 ML VIAL [PPSV23] IM ONE (02:30)
[2018-04-22] MEDS ORDERED: ChlorproMAZINE HCL 50 MG TABLET PO PRN (04:24)
[2018-04-22] MEDS ORDERED: ALBUTEROL SULFATE HFA 90 MCG/PUFF 8 GM INHALER IH PRN (08:00)
[2018-04-22] MEDS ORDERED: BENZOCAINE/MENTHOL LOZENGE MM PRN (08:00)
[2018-04-22] MEDS ORDERED: CloNIDine HCL 0.1 MG TABLET PO PRN (08:00)
[2018-04-22] MEDS ORDERED: ONDANSETRON HCL 4 MG TABLET PO PRN (08:00)
[2018-04-22] MEDS ORDERED: LOPERAMIDE HCL 2 MG CAPSULE PO PRN (08:00)
[2018-04-22] MEDS ORDERED: BACITRACIN 28.4 GM OINTMENT TP PRN (08:00)
[2018-04-22] MEDS ORDERED: MAG HYDROX/AL HYDROX/SIMETH ES 30 ML SUSPENSION UDCUP PO PRN (08:00)
[2018-04-22] MEDS ORDERED: PETROLATUM,WHITE 71 GM JELLY TP PRN (08:00)
[2018-04-22 08:09] VITALS: BP 125/63
[2018-04-22 08:26] LABS: HEMOGLOBIN A1C 5.5 % (4.5-6.2)
[2018-04-22 08:38] LABS: ALBUMIN 3.4 g/dL (3.4-5.0); BILIRUBIN,TOTAL 0.6 mg/dL (0.1-1.0); CALCIUM, TOTAL 8.8 mg/dL (8.8-10.5); CREATININE 1.03 mg/dL (0.60-1.30); FREE T4 (FREE THYROXINE) 0.76 ng/dL (0.76-1.46); POTASSIUM 3.3 mmol/L (3.5-5.1); THYROID STIMULATING HORMONE 0.29 uIU/mL (0.36-3.74); TOTAL PROTEIN, SERUM 6.7 g/dL (6.4-8.2)
[2018-04-22] MEDS ORDERED: PROPRANOLOL HCL 10 MG TABLET PO SCH (09:00)
[2018-04-22] MEDS ORDERED: DOCUSATE SODIUM 250 MG CAPSULE PO SCH (09:00)
[2018-04-22] MEDS: LISINOPRIL 20 MG TABLET PO SCH (09:32)
[2018-04-22] MEDS: OMEPRAZOLE 20 MG CAPSULE PO SCH (09:32)
[2018-04-22] MEDS: DOCUSATE SODIUM 100 MG CAPSULE PO SCH (09:32)
[2018-04-22] MEDS: LORazepam 1 MG TABLET PO PRN (12:02)
[2018-04-22] MEDS: AMANTADINE HCL 100 MG CAPSULE PO SCH ×2 (13:21→16:45)
[2018-04-22] MEDS: TAMOXIFEN CITRATE 10 MG TABLET PO SCH (15:31)
[2018-04-22 16:13] VITALS: BP 107/84
[2018-04-22] MEDS: OLANZapine 5 MG TABLET PO SCH (20:42)
[2018-04-22] MEDS: ARIPiprazole 5 MG TABLET PO SCH (20:42)
[2018-04-22] MEDS: FluvoxaMINE MALEATE 50 MG TABLET PO SCH (20:42)
[2018-04-22] MEDS ORDERED: PHENYLEPHRINE/SHK LV/MIN OIL/PET 57 GM OINTMENT TP PRN (22:15)
[2018-04-23 00:15] VITALS: BP 108/62
[2018-04-23 08:10] VITALS: BP 118/68
[2018-04-23] MEDS: LISINOPRIL 20 MG TABLET PO SCH (08:14)
[2018-04-23] MEDS: DOCUSATE SODIUM 100 MG CAPSULE PO SCH (08:14)
[2018-04-23] MEDS: TAMOXIFEN CITRATE 10 MG TABLET PO SCH (08:14)
[2018-04-23] MEDS: OMEPRAZOLE 20 MG CAPSULE PO SCH (08:14)
[2018-04-23] MEDS: AMANTADINE HCL 100 MG CAPSULE PO SCH ×2 (08:14→16:39)
[2018-04-23 08:28] LABS: BASOPHILS % (AUTO) 0.4 % (0.0-2.0); EOSINOPHILS % (AUTO) 1.3 % (1.0-6.0); HEMATOCRIT 40.6 % (36-46); HEMOGLOBIN 13.9 g/dL (12.0-16.0); LYMPHOCYTES # (AUTO) 1.8 K/uL (1.0-4.8); LYMPHOCYTES % (AUTO) 20.2 % (22.0-44.0); MEAN CORPUSCULAR HEMOGLOBIN 32.6 pg (26.0-34.0); MEAN CORPUSCULAR HGB CONC 34.2 G/dL (31.0-37.0); MEAN CORPUSCULAR VOLUME 95 fL (80-100); MONOCYTES # (AUTO) 0.9 K/uL (0.1-1.0); MONOCYTES % (AUTO) 10.1 % (2.0-9.0); PLATELET COUNT (AUTO) 266 K/uL (150-450); RED BLOOD CELL COUNT(AUTO) 4.26 MIL/uL (4.00-5.20); RED CELL DISTRIBUTION WIDTH 14.3 % (11.5-14.5)
[2018-04-23] MEDS: ACETAMINOPHEN 325 MG TABLET PO PRN (08:30)
[2018-04-23 08:55] LABS: POTASSIUM 3.8 mmol/L (3.5-5.1)
[2018-04-23 09:21] LABS: % IRON SATURATION 15.2 % (22-44)
[2018-04-23] MEDS ORDERED: DiphenhydrAMINE HCL 25 MG CAPSULE PO PRN (13:30)
[2018-04-23 16:11] VITALS: BP 123/76
[2018-04-23] MEDS: FluvoxaMINE MALEATE 50 MG TABLET PO SCH (20:39)
[2018-04-23] MEDS: OLANZapine 5 MG TABLET PO SCH (20:39)
[2018-04-23] MEDS: ARIPiprazole 5 MG TABLET PO SCH (20:39)
[2018-04-24 08:05] VITALS: BP 120/84
[2018-04-24] MEDS: AMANTADINE HCL 100 MG CAPSULE PO SCH ×2 (08:16→16:50)
[2018-04-24] MEDS: DOCUSATE SODIUM 100 MG CAPSULE PO SCH (08:16)
[2018-04-24] MEDS: OMEPRAZOLE 20 MG CAPSULE PO SCH (08:17)
[2018-04-24] MEDS: LISINOPRIL 20 MG TABLET PO SCH (08:17)
[2018-04-24] MEDS: TAMOXIFEN CITRATE 10 MG TABLET PO SCH (08:17)
[2018-04-24] MEDS: IBUPROFEN 600 MG TABLET PO PRN (08:39)
[2018-04-24 16:04] VITALS: BP 130/73
[2018-04-24] MEDS: ARIPiprazole 10 MG TABLET PO SCH (20:24)
[2018-04-24] MEDS: OLANZapine 5 MG TABLET PO SCH (20:24)
[2018-04-24] MEDS: FluvoxaMINE MALEATE 50 MG TABLET PO SCH (20:24)
[2018-04-24] MEDS: ZOLPIDEM TARTRATE 10 MG TABLET PO PRN (21:50)
[2018-04-25 02:54] VITALS: BP 129/80
[2018-04-25] MEDS: MULTIVITAMINS WITH IRON TABLET PO SCH (08:03)
[2018-04-25] MEDS: AMANTADINE HCL 100 MG CAPSULE PO SCH ×2 (08:03→16:48)
[2018-04-25] MEDS: LISINOPRIL 20 MG TABLET PO SCH (08:03)
[2018-04-25] MEDS: DOCUSATE SODIUM 100 MG CAPSULE PO SCH (08:03)
[2018-04-25] MEDS: OMEPRAZOLE 20 MG CAPSULE PO SCH (08:03)
[2018-04-25] MEDS: TAMOXIFEN CITRATE 10 MG TABLET PO SCH (08:04)
[2018-04-25 08:15] VITALS: BP 125/86
[2018-04-25 16:10] VITALS: BP 127/64
[2018-04-25] MEDS: ARIPiprazole 10 MG TABLET PO SCH (20:34)
[2018-04-25] MEDS: OLANZapine 5 MG TABLET PO SCH (20:34)
[2018-04-25] MEDS: FluvoxaMINE MALEATE 50 MG TABLET PO SCH (20:34)
[2018-04-25] MEDS: ZOLPIDEM TARTRATE 10 MG TABLET PO PRN (21:03)
[2018-04-25 21:24] VITALS: BP 137/81
[2018-04-25] MEDS: IBUPROFEN 600 MG TABLET PO PRN (21:24)
[2018-04-26 05:54] VITALS: BP 128/91
[2018-04-26 05:55] VITALS: BP 128/91
[2018-04-26] MEDS: MULTIVITAMINS WITH IRON TABLET PO SCH (07:22)
[2018-04-26] MEDS: DOCUSATE SODIUM 100 MG CAPSULE PO SCH (08:09)
[2018-04-26] MEDS: TAMOXIFEN CITRATE 10 MG TABLET PO SCH (08:09)
[2018-04-26] MEDS: AMANTADINE HCL 100 MG CAPSULE PO SCH ×2 (08:09→16:37)
[2018-04-26] MEDS: LISINOPRIL 20 MG TABLET PO SCH (08:09)
[2018-04-26] MEDS: OMEPRAZOLE 20 MG CAPSULE PO SCH (08:09)
[2018-04-26 08:14] VITALS: BP 132/88
[2018-04-26 16:06] VITALS: BP 144/90
[2018-04-26] MEDS: FluvoxaMINE MALEATE 50 MG TABLET PO SCH (20:33)
[2018-04-26] MEDS: ARIPiprazole 15 MG TABLET PO SCH (20:33)
[2018-04-26] MEDS: OLANZapine 5 MG TABLET PO SCH (20:33)
[2018-04-27 00:23] VITALS: BP 107/89
[2018-04-27] MEDS: ZOLPIDEM TARTRATE 10 MG TABLET PO PRN (00:54)
[2018-04-27] MEDS: MULTIVITAMINS WITH IRON TABLET PO SCH (06:47)
[2018-04-27] MEDS: AMANTADINE HCL 100 MG CAPSULE PO SCH ×2 (08:08→16:44)
[2018-04-27] MEDS: TAMOXIFEN CITRATE 10 MG TABLET PO SCH (08:08)
[2018-04-27] MEDS: LISINOPRIL 20 MG TABLET PO SCH (08:08)
[2018-04-27] MEDS: OMEPRAZOLE 20 MG CAPSULE PO SCH (08:08)
[2018-04-27] MEDS: DOCUSATE SODIUM 100 MG CAPSULE PO SCH (08:08)
[2018-04-27 08:30] VITALS: BP 117/84
[2018-04-27] MEDS: IBUPROFEN 600 MG TABLET PO PRN ×2 (08:41→19:46)
[2018-04-27 16:11] VITALS: BP 119/86
[2018-04-27 19:46] VITALS: BP 151/72
[2018-04-27] MEDS: LORazepam 1 MG TABLET PO PRN (19:46)
[2018-04-27] MEDS: FluvoxaMINE MALEATE 50 MG TABLET PO SCH (20:39)
[2018-04-27] MEDS: ARIPiprazole 15 MG TABLET PO SCH (20:39)
[2018-04-27] MEDS: OLANZapine 5 MG TABLET PO SCH (20:40)
[2018-04-27 20:46] VITALS: BP 120/76
[2018-04-28 06:36] VITALS: BP 122/77
[2018-04-28] MEDS: MULTIVITAMINS WITH IRON TABLET PO SCH (07:00)
[2018-04-28] MEDS: LISINOPRIL 20 MG TABLET PO SCH (08:17)
[2018-04-28 08:18] VITALS: BP 117/84
[2018-04-28] MEDS: DOCUSATE SODIUM 100 MG CAPSULE PO SCH (08:18)
[2018-04-28] MEDS: AMANTADINE HCL 100 MG CAPSULE PO SCH ×2 (08:18→16:48)
[2018-04-28] MEDS: IBUPROFEN 600 MG TABLET PO PRN ×2 (08:18→21:12)
[2018-04-28] MEDS: OMEPRAZOLE 20 MG CAPSULE PO SCH (08:18)
[2018-04-28] MEDS: TAMOXIFEN CITRATE 10 MG TABLET PO SCH (08:19)
[2018-04-28 08:40] VITALS: BP 117/84
[2018-04-28 16:16] VITALS: BP 125/85
[2018-04-28] MEDS: FluvoxaMINE MALEATE 50 MG TABLET PO SCH (20:43)
[2018-04-28] MEDS: ARIPiprazole 10 MG TABLET PO SCH (20:43)
[2018-04-28] MEDS: OLANZapine 5 MG TABLET PO SCH (20:44)
[2018-04-28 21:12] VITALS: BP 146/90
[2018-04-28 22:23] VITALS: BP 138/65
[2018-04-29] VITALS: BP 126/76
[2018-04-29] MEDS: LORazepam 1 MG TABLET PO PRN ×2 (00:02→22:03)
[2018-04-29] MEDS: ACETAMINOPHEN 325 MG TABLET PO PRN ×2 (00:02→09:34)
[2018-04-29] MEDS: MULTIVITAMINS WITH IRON TABLET PO SCH (07:10)
[2018-04-29] MEDS: DOCUSATE SODIUM 100 MG CAPSULE PO SCH (08:43)
[2018-04-29] MEDS: LISINOPRIL 20 MG TABLET PO SCH (08:43)
[2018-04-29] MEDS: TAMOXIFEN CITRATE 10 MG TABLET PO SCH (08:43)
[2018-04-29] MEDS: OMEPRAZOLE 20 MG CAPSULE PO SCH (08:43)
[2018-04-29] MEDS: AMANTADINE HCL 100 MG CAPSULE PO SCH ×2 (08:43→16:22)
[2018-04-29 09:06] VITALS: BP 121/60
[2018-04-29 16:29] VITALS: BP 124/76
[2018-04-29] MEDS: IBUPROFEN 600 MG TABLET PO PRN (17:10)
[2018-04-29] MEDS: FluvoxaMINE MALEATE 50 MG TABLET PO SCH (20:10)
[2018-04-29] MEDS: ARIPiprazole 10 MG TABLET PO SCH (20:10)
[2018-04-29] MEDS: OLANZapine 5 MG TABLET PO SCH (20:10)
[2018-04-30 00:01] VITALS: BP 139/88
[2018-04-30] MEDS: ZOLPIDEM TARTRATE 10 MG TABLET PO PRN (00:03)
[2018-04-30] MEDS: MULTIVITAMINS WITH IRON TABLET PO SCH (07:13)
[2018-04-30 08:20] VITALS: BP 131/82
[2018-04-30] MEDS: OMEPRAZOLE 20 MG CAPSULE PO SCH (08:37)
[2018-04-30] MEDS: AMANTADINE HCL 100 MG CAPSULE PO SCH ×2 (08:39→16:51)
[2018-04-30] MEDS: IBUPROFEN 600 MG TABLET PO PRN ×2 (08:40→17:03)
[2018-04-30] MEDS: LISINOPRIL 20 MG TABLET PO SCH (08:40)
[2018-04-30] MEDS: DOCUSATE SODIUM 100 MG CAPSULE PO SCH (08:41)
[2018-04-30] MEDS: TAMOXIFEN CITRATE 10 MG TABLET PO SCH (08:41)
[2018-04-30 17:00] VITALS: BP 129/84
[2018-04-30] MEDS ORDERED: ESZOPICLONE 2 MG TABLET PO PRN (20:30)
[2018-04-30] MEDS: FluvoxaMINE MALEATE 50 MG TABLET PO SCH (20:38)
[2018-04-30] MEDS: ARIPiprazole 10 MG TABLET PO SCH (20:39)
[2018-04-30] MEDS: OLANZapine 5 MG TABLET PO SCH (20:39)
[2018-04-30] MEDS: ClonazePAM 0.5 MG TABLET PO SCH (20:48)
[2018-05-01 01:11] VITALS: BP 102/60
[2018-05-01] MEDS: IBUPROFEN 600 MG TABLET PO PRN (04:54)
[2018-05-01] MEDS: MULTIVITAMINS WITH IRON TABLET PO SCH (07:25)
[2018-05-01] MEDS: DOCUSATE SODIUM 100 MG CAPSULE PO SCH (08:01)
[2018-05-01] MEDS: TAMOXIFEN CITRATE 10 MG TABLET PO SCH (08:01)
[2018-05-01 08:02] VITALS: BP 126/86
[2018-05-01] MEDS: LISINOPRIL 20 MG TABLET PO SCH (08:02)
[2018-05-01] MEDS: ACETAMINOPHEN 325 MG TABLET PO PRN (08:02)
[2018-05-01] MEDS: AMANTADINE HCL 100 MG CAPSULE PO SCH ×2 (08:02→16:39)
[2018-05-01] MEDS: OMEPRAZOLE 20 MG CAPSULE PO SCH (08:02)
[2018-05-01] MEDS: ClonazePAM 0.5 MG TABLET PO SCH ×2 (08:02→20:51)
[2018-05-01 08:05] VITALS: BP 126/86
[2018-05-01 16:25] VITALS: BP 124/81
[2018-05-01] MEDS: DOCUSATE SODIUM 250 MG CAPSULE PO SCH (16:39)
[2018-05-01] MEDS: ARIPiprazole 10 MG TABLET PO SCH (20:51)
[2018-05-01] MEDS: FluvoxaMINE MALEATE 50 MG TABLET PO SCH (20:51)
[2018-05-01] MEDS: OLANZapine 5 MG TABLET PO SCH (20:54)
[2018-05-02 02:06] VITALS: BP 128/72
[2018-05-02] MEDS: MULTIVITAMINS WITH IRON TABLET PO SCH (07:02)
[2018-05-02 08:20] VITALS: BP 146/94
[2018-05-02] MEDS: ClonazePAM 0.5 MG TABLET PO SCH ×2 (08:20→21:47)
[2018-05-02] MEDS: AMANTADINE HCL 100 MG CAPSULE PO SCH ×2 (08:20→16:24)
[2018-05-02] MEDS: LISINOPRIL 20 MG TABLET PO SCH (08:20)
[2018-05-02] MEDS: DOCUSATE SODIUM 250 MG CAPSULE PO SCH ×2 (08:20→16:24)
[2018-05-02] MEDS: TAMOXIFEN CITRATE 10 MG TABLET PO SCH (08:20)
[2018-05-02] MEDS: OMEPRAZOLE 20 MG CAPSULE PO SCH (08:20)
[2018-05-02 10:00] VITALS: BP 129/74
[2018-05-02 16:13] VITALS: BP 125/84
[2018-05-02] MEDS: ARIPiprazole 10 MG TABLET PO SCH (21:48)
[2018-05-02] MEDS: OLANZapine 5 MG TABLET PO SCH (21:49)
[2018-05-02] MEDS: FluvoxaMINE MALEATE 50 MG TABLET PO SCH (21:49)
[2018-05-03 02:55] VITALS: BP 141/95
[2018-05-03] MEDS: MULTIVITAMINS WITH IRON TABLET PO SCH (07:13)
[2018-05-03 08:05] VITALS: BP 114/85
[2018-05-03] MEDS: DOCUSATE SODIUM 250 MG CAPSULE PO SCH ×2 (08:20→16:07)
[2018-05-03] MEDS: ClonazePAM 0.5 MG TABLET PO SCH ×2 (08:20→20:08)
[2018-05-03] MEDS: AMANTADINE HCL 100 MG CAPSULE PO SCH ×2 (08:20→16:07)
[2018-05-03] MEDS: OMEPRAZOLE 20 MG CAPSULE PO SCH (08:20)
[2018-05-03] MEDS: TAMOXIFEN CITRATE 10 MG TABLET PO SCH (08:20)
[2018-05-03] MEDS: LISINOPRIL 20 MG TABLET PO SCH (08:20)
[2018-05-03] MEDS: IBUPROFEN 600 MG TABLET PO PRN ×2 (08:28→16:07)
[2018-05-03 16:05] VITALS: BP 138/88
[2018-05-03] MEDS: MAGNESIUM HYDROXIDE SUSPENSION 30 ML UDCUP PO PRN (16:59)
[2018-05-03] MEDS: FluvoxaMINE MALEATE 50 MG TABLET PO SCH (20:08)
[2018-05-03] MEDS: ARIPiprazole 10 MG TABLET PO SCH (20:08)
[2018-05-04 05:54] VITALS: BP 114/71
[2018-05-04] MEDS: MULTIVITAMINS WITH IRON TABLET PO SCH (06:53)
[2018-05-04] MEDS: LISINOPRIL 20 MG TABLET PO SCH (08:15)
[2018-05-04] MEDS: ClonazePAM 0.5 MG TABLET PO SCH ×2 (08:15→20:30)
[2018-05-04] MEDS: OMEPRAZOLE 20 MG CAPSULE PO SCH (08:15)
[2018-05-04] MEDS: TAMOXIFEN CITRATE 10 MG TABLET PO SCH (08:15)
[2018-05-04] MEDS: AMANTADINE HCL 100 MG CAPSULE PO SCH ×2 (08:15→16:45)
[2018-05-04] MEDS: DOCUSATE SODIUM 250 MG CAPSULE PO SCH ×2 (08:15→16:46)
[2018-05-04 08:37] VITALS: BP 133/87
[2018-05-04] MEDS ORDERED: ARIPiprazole ER SUSPENSION 400 MG PRE-FILLED DUAL CHAMBER SYRINGE IM SCH (09:00)
[2018-05-04 16:17] VITALS: BP 120/86
[2018-05-04 18:15] VITALS: BP 128/84
[2018-05-04] MEDS: IBUPROFEN 600 MG TABLET PO PRN (18:20)
[2018-05-04] MEDS: MAGNESIUM HYDROXIDE SUSPENSION 30 ML UDCUP PO PRN (19:54)
[2018-05-04] MEDS: ARIPiprazole 10 MG TABLET PO SCH (20:30)
[2018-05-04] MEDS: FluvoxaMINE MALEATE 50 MG TABLET PO SCH (20:30)
[2018-05-05 01:21] VITALS: BP 137/68
[2018-05-05] MEDS: MULTIVITAMINS WITH IRON TABLET PO SCH (07:20)
[2018-05-05] MEDS: AMANTADINE HCL 100 MG CAPSULE PO SCH ×2 (08:38→16:31)
[2018-05-05] MEDS: LISINOPRIL 20 MG TABLET PO SCH (08:38)
[2018-05-05] MEDS: OMEPRAZOLE 20 MG CAPSULE PO SCH (08:38)
[2018-05-05] MEDS: ClonazePAM 0.5 MG TABLET PO SCH ×2 (08:38→20:26)
[2018-05-05] MEDS: DOCUSATE SODIUM 250 MG CAPSULE PO SCH ×2 (08:38→16:32)
[2018-05-05] MEDS: TAMOXIFEN CITRATE 10 MG TABLET PO SCH (08:38)
[2018-05-05 08:47] VITALS: BP 118/89
[2018-05-05 16:06] VITALS: BP 113/81
[2018-05-05] MEDS: ARIPiprazole 10 MG TABLET PO SCH (20:26)
[2018-05-06] VITALS: BP 137/90
[2018-05-06] MEDS: IBUPROFEN 600 MG TABLET PO PRN (00:02)
[2018-05-06] MEDS: MULTIVITAMINS WITH IRON TABLET PO SCH (07:08)
[2018-05-06 08:00] VITALS: BP 142/77
[2018-05-06] MEDS: ClonazePAM 0.5 MG TABLET PO SCH ×2 (08:24→22:00)
[2018-05-06] MEDS: LISINOPRIL 20 MG TABLET PO SCH (08:24)
[2018-05-06] MEDS: DOCUSATE SODIUM 250 MG CAPSULE PO SCH ×2 (08:24→16:56)
[2018-05-06] MEDS: AMANTADINE HCL 100 MG CAPSULE PO SCH ×2 (08:24→16:56)
[2018-05-06] MEDS: OMEPRAZOLE 20 MG CAPSULE PO SCH (08:24)
[2018-05-06] MEDS: TAMOXIFEN CITRATE 10 MG TABLET PO SCH (08:25)
[2018-05-06] MEDS: ACETAMINOPHEN 325 MG TABLET PO PRN (15:46)
[2018-05-06 16:25] VITALS: BP 128/73
[2018-05-06] MEDS: ARIPiprazole 10 MG TABLET PO SCH (22:00)
[2018-05-07 04:50] VITALS: BP 136/79
[2018-05-07] MEDS: MULTIVITAMINS WITH IRON TABLET PO SCH (07:13)
[2018-05-07] MEDS ORDERED: MVITFE PO (07:30)
[2018-05-07] MEDS ORDERED: OMEP20 PO (07:30)
[2018-05-07 08:08] VITALS: BP 127/88
[2018-05-07] MEDS: AMANTADINE HCL 100 MG CAPSULE PO SCH (08:17)
[2018-05-07] MEDS: ClonazePAM 0.5 MG TABLET PO SCH (08:17)
[2018-05-07] MEDS: OMEPRAZOLE 20 MG CAPSULE PO SCH (08:17)
[2018-05-07] MEDS: LISINOPRIL 20 MG TABLET PO SCH (08:17)
[2018-05-07] MEDS: DOCUSATE SODIUM 250 MG CAPSULE PO SCH (08:17)
[2018-05-07] MEDS: TAMOXIFEN CITRATE 10 MG TABLET PO SCH (08:18)
[2018-05-07 09:25] LABS: BASOPHILS % (AUTO) 0.7 % (0.0-2.0); EOSINOPHILS % (AUTO) 0.6 % (1.0-6.0); HEMATOCRIT 42.7 % (36-46); HEMOGLOBIN 14.8 g/dL (12.0-16.0); LYMPHOCYTES # (AUTO) 1.1 K/uL (1.0-4.8); MEAN CORPUSCULAR HEMOGLOBIN 32.9 pg (26.0-34.0); MEAN CORPUSCULAR HGB CONC 34.6 G/dL (31.0-37.0); MEAN CORPUSCULAR VOLUME 95 fL (80-100); MONOCYTES # (AUTO) 0.8 K/uL (0.1-1.0); MONOCYTES % (AUTO) 9.2 % (2.0-9.0); NEUTROPHILS # (AUTO) 6.7 K/uL (1.8-7.7); NEUTROPHILS % (AUTO) 76.5 % (40.0-70.0); PLATELET COUNT (AUTO) 245 K/uL (150-450); RED BLOOD CELL COUNT(AUTO) 4.51 MIL/uL (4.00-5.20); RED CELL DISTRIBUTION WIDTH 14.3 % (11.5-14.5)
[2018-05-07] MEDS ORDERED: ARIP400S3 IM (09:30)
[2018-05-07] MEDS ORDERED: ARIP10TA8 PO (09:30)
[2018-05-07] MEDS ORDERED: CLON.5 PO (09:30)
[2018-05-07 10:01] LABS: ALANINE AMINOTRANSFERASE 40 U/L (12-78); ALBUMIN 3.8 g/dL (3.4-5.0); ALKALINE PHOSPHATASE 89 U/L (46-116); ANION GAP 7 mmol/L (8-16); ASPARTATE AMINOTRANSFERASE 21 U/L (15-37); BILIRUBIN,TOTAL 0.3 mg/dL (0.1-1.0); CALCIUM, TOTAL 9.6 mg/dL (8.8-10.5); CARBON DIOXIDE 28 mmol/L (22-29); CHLORIDE 104 mmol/L (98-107); CKMB RELATIVE INDEX 4.8 % (0.0-4.0); CREATINE KINASE MB 7.6 ng/mL (0-5); CREATINE KINASE, TOTAL 158 U/L (26-192); CREATININE 0.82 mg/dL (0.60-1.30); GLOMERULAR FILTR. RATE CALC > 60 mL/min (>60); GLUCOSE,RANDOM 81 mg/dL (70-110); POTASSIUM 4.3 mmol/L (3.5-5.1); SODIUM SERUM 139 mmol/L (136-145); TOTAL PROTEIN, SERUM 7.5 g/dL (6.4-8.2); UREA NITROGEN, BLOOD 21 mg/dL (7-18)
== END 2018-05-07 10:10 | disposition home or self-care (01) | DRG 885 ==
LOC: EMS 18:08 → B2X 23:00
PROVIDERS: ADMIT Psychiatry & Neurology Psychiatry; ATTEND Psychiatry & Neurology Psychiatry
PROC: 3E0234Z Introduction of Serum, Toxoid and Vaccine into Muscle, Percutaneous Approach (ICD-10-PCS; principal; 2018-04-22)
DX: F31.64 Bipolar disorder, current episode mixed, severe, with psychotic features (principal); R45.851 Suicidal ideations; C50.912 Malignant neoplasm of unspecified site of left female breast; D64.9 Anemia, unspecified; E78.00 Pure hypercholesterolemia, unspecified; F10.10 Alcohol abuse, uncomplicated; F41.9 Anxiety disorder, unspecified; H66.92 Otitis media, unspecified, left ear; K21.9 Gastro-esophageal reflux disease without esophagitis; K59.00 Constipation, unspecified; E87.6 Hypokalemia; I12.9 Hypertensive chronic kidney disease with stage 1 through stage 4 chronic kidney disease, or unspecified chronic kidney disease; N18.3 Chronic kidney disease, stage 3 (moderate); K64.9 Unspecified hemorrhoids; N28.9 Disorder of kidney and ureter, unspecified; Z91.14 Patient's other noncompliance with medication regimen; Z91.19 Patient's noncompliance with other medical treatment and regimen; Z85.3 Personal history of malignant neoplasm of breast; Z92.3 Personal history of irradiation; Z92.21 Personal history of antineoplastic chemotherapy; Z79.899 Other long term (current) drug therapy; Z88.0 Allergy status to penicillin; Z88.8 Allergy status to other drugs, medicaments and biological substances; Z23 Encounter for immunization
CPT/HCPCS: 80074; 83036; 83540; 83550; 83735; 84132; 84439; 84443; 87081; 90471; 99285; G0480; J0401

== ENCOUNTER → 2019-06-29 | Outpatient (CLI) | payer MEDICARE, OTHER ==
[~2019-06-29] MED LIST changes: +AMAN-6 PO; -AMAN100C12 PO; +ARIP10TA8 PO; +ARIP300S IM; +CLON.5 PO; +MVITFE PO; +OMEP20 PO; -PROP10TA73 PO
[2019-07-02 08:42] LABS: HEMOGLOBIN A1C 5.2 % (4.5-6.2)
[2019-07-02 08:44] LABS: CHOL/HDL RATIO 4.2 (3.9-5.7)
== END | disposition home or self-care (01) ==
LOC: LABMN 13:50
PROVIDERS: ATTEND Psychiatry & Neurology Psychiatry
DX: F31.32 Bipolar disorder, current episode depressed, moderate (principal); Z79.899 Other long term (current) drug therapy; I10 Essential (primary) hypertension; E78.00 Pure hypercholesterolemia, unspecified
CPT/HCPCS: 82947; 83036

== ENCOUNTER 2019-11-16 15:06 | Inpatient (IN) | payer MEDICARE, MEDICAID, OTHER ==
[~2019-11-16] VITALS: Ht 162.6 cm; Wt 64.9 kg
[~2019-11-16 15:06] MED LIST changes: +DOCU-342 PO; -DOCU250C91 PO
[2019-11-16 16:06] LABS: BASOPHILS % (AUTO) 0.8 % (0.0-2.0); EOSINOPHILS % (AUTO) 0.9 % (1.0-6.0); HEMATOCRIT 42.6 % (36-46); HEMOGLOBIN 14.7 g/dL (12.0-16.0); LYMPHOCYTES # (AUTO) 1.5 K/uL (1.0-4.8); LYMPHOCYTES % (AUTO) 19.5 % (22.0-44.0); MEAN CORPUSCULAR HEMOGLOBIN 30.6 pg (26.0-34.0); MEAN CORPUSCULAR HGB CONC 34.4 G/dL (31.0-37.0); MEAN CORPUSCULAR VOLUME 89 fL (80-100); MONOCYTES # (AUTO) 1.2 K/uL (0.1-1.0); MONOCYTES % (AUTO) 15.1 % (2.0-9.0); NEUTROPHILS % (AUTO) 63.7 % (40.0-70.0); PLATELET COUNT (AUTO) 221 K/uL (150-450); RED BLOOD CELL COUNT(AUTO) 4.79 MIL/uL (4.00-5.20); RED CELL DISTRIBUTION WIDTH 13.2 % (11.5-14.5)
[2019-11-16] MEDS ORDERED: BUSP10TA23 PO (16:08)
[2019-11-16] MEDS ORDERED: HYDR50CA9 PO (16:08)
[2019-11-16 16:14] LABS: ANION GAP 7 mmol/L (8-16); CARBON DIOXIDE 26 mmol/L (22-29); CHLORIDE 107 mmol/L (98-107); CREATININE 1.11 mg/dL (0.60-1.30); GLOMERULAR FILTR. RATE CALC 51 mL/min (>60); GLUCOSE,RANDOM 104 mg/dL (70-110); POTASSIUM 4.6 mmol/L (3.5-5.1); SODIUM SERUM 140 mmol/L (136-145); UREA NITROGEN, BLOOD 17 mg/dL (7-18)
[2019-11-16 16:26] LABS: ALANINE AMINOTRANSFERASE 44 U/L (12-78); ALBUMIN 3.9 g/dL (3.4-5.0); ALKALINE PHOSPHATASE 97 U/L (46-116); ASPARTATE AMINOTRANSFERASE 23 U/L (15-37); BILIRUBIN,TOTAL 0.3 mg/dL (0.1-1.0); HCG,QUANTITATIVE < 1 mIU/mL (0-6); TOTAL PROTEIN, SERUM 7.8 g/dL (6.4-8.2)
[2019-11-16 19:50] LABS: AMPHET/METH SCREEN,URINE NEGATIVE (NEGATIVE); BARBITURATE SCREEN, URINE NEGATIVE (NEGATIVE); BENZODIAZEPINES SCREEN,URINE NEGATIVE (NEGATIVE); CANNABINOID SCREEN,URINE NEGATIVE (NEGATIVE); COCAINE SCREEN,URINE NEGATIVE (NEGATIVE); METHADONE SCREEN, URINE NEGATIVE (NEGATIVE); OPIATE SCREEN,URINE NEGATIVE (NEGATIVE); PHENCYCLIDINE SCREEN,URINE NEGATIVE (NEGATIVE)
[2019-11-16] MEDS ORDERED: LORazepam 2 MG TABLET PO PRN (22:00)
[2019-11-16] MEDS ORDERED: OLANZapine 5 MG RAPDIS TABLET PO PRN (22:00)
[2019-11-16] MEDS ORDERED: ZOLPIDEM TARTRATE 10 MG TABLET PO PRN (22:00)
[2019-11-16 23:00] VITALS: BP 134/87
[2019-11-17] MEDS ORDERED: PETROLATUM,WHITE 28 GM JELLY TP PRN (07:15)
[2019-11-17] MEDS ORDERED: LOPERAMIDE HCL 2 MG CAPSULE PO PRN (07:15)
[2019-11-17] MEDS ORDERED: IBUPROFEN 400 MG TABLET PO PRN (07:15)
[2019-11-17] MEDS ORDERED: MAGNESIUM HYDROXIDE SUSPENSION 30 ML UDCUP PO PRN (07:15)
[2019-11-17] MEDS ORDERED: DOCUSATE SODIUM 100 MG CAPSULE PO PRN (07:15)
[2019-11-17] MEDS ORDERED: MAG HYDROX/AL HYDROX/SIMETH ES 30 ML SUSPENSION UDCUP PO PRN (07:15)
[2019-11-17] MEDS ORDERED: CloNIDine HCL 0.1 MG TABLET PO PRN (07:15)
[2019-11-17] MEDS ORDERED: ONDANSETRON HCL 4 MG TABLET PO PRN (07:15)
[2019-11-17] MEDS ORDERED: NICOTINE 14 MG/24 HOUR PATCH TD PRN (07:15)
[2019-11-17] MEDS ORDERED: ACETAMINOPHEN 325 MG TABLET PO PRN (07:15)
[2019-11-17] MEDS ORDERED: ALBUTEROL SULFATE HFA 90 MCG/PUFF 8 GM INHALER IH PRN (07:15)
[2019-11-17] MEDS ORDERED: GuaiFENesin/D-METHORPHAN [SUGAR-FREE] 200-20MG/10 ML SYRUP UDCUP PO PRN ×2 (07:15→12:00)
[2019-11-17 07:31] LABS: CHOL/HDL RATIO 4.9 (3.9-5.7)
[2019-11-17] MEDS ORDERED: MULTIVITAMINS WITH IRON TABLET PO SCH (08:00)
[2019-11-17] MEDS: AMANTADINE HCL 100 MG CAPSULE PO SCH ×2 (08:29→16:25)
[2019-11-17] MEDS ORDERED: DOCUSATE SODIUM 250 MG CAPSULE PO SCH (09:00)
[2019-11-17] MEDS ORDERED: OMEPRAZOLE 20 MG CAPSULE PO SCH (09:00)
[2019-11-17] MEDS ORDERED: LISINOPRIL 20 MG TABLET PO SCH (09:00)
[2019-11-17] MEDS ORDERED: TAMOXIFEN CITRATE 10 MG TABLET PO SCH ×2 (09:00)
[2019-11-17 09:12] VITALS: BP 104/67
[2019-11-17] MEDS ORDERED: HydrOXYzine PAMOATE 50 MG CAPSULE PO PRN (12:00)
[2019-11-17] MEDS ORDERED: ARIPiprazole ER SUSPENSION 400 MG PRE-FILLED DUAL CHAMBER SYRINGE IM ONE (14:00)
[2019-11-17] MEDS: THIAMINE HCL 100 MG TABLET PO SCH (16:25)
[2019-11-17 17:00] VITALS: BP 96/61
[2019-11-17] MEDS ORDERED: BusPIRone HCL 10 MG TABLET PO SCH (21:00)
[2019-11-17] MEDS ORDERED: ARIPiprazole 10 MG TABLET PO SCH (21:00)
[2019-11-18 07:44] LABS: HEMOGLOBIN A1C 5.5 % (4.5-6.2)
[2019-11-18 08:00] LABS: CHOL/HDL RATIO 4.9 (3.9-5.7); FREE T4 (FREE THYROXINE) 0.77 ng/dL (0.76-1.46); THYROID STIMULATING HORMONE 0.78 uIU/mL (0.36-3.74)
[2019-11-18 08:26] VITALS: BP 90/62
[2019-11-18] MEDS: FOLIC ACID 1 MG TABLET PO SCH (08:44)
[2019-11-18] MEDS: MULTIVITAMINS WITH MINERALS, THERAPEUTIC TABLET PO SCH (08:44)
[2019-11-18] MEDS: AMANTADINE HCL 100 MG CAPSULE PO SCH ×2 (08:44→16:14)
[2019-11-18] MEDS: THIAMINE HCL 100 MG TABLET PO SCH ×2 (08:44→16:14)
[2019-11-18] MEDS ORDERED: ARIP10TA8 PO (12:56)
[2019-11-18] MEDS ORDERED: AMAN-6 PO (12:56)
[2019-11-18] MEDS ORDERED: BUSP10TA23 PO (12:56)
[2019-11-18] MEDS ORDERED: ARIP400S3 IM (12:56)
[2019-11-18] MEDS ORDERED: NALT50TA PO (12:57)
[2019-11-18] MEDS ORDERED: QUET200T29 PO (13:23)
[2019-11-18] MEDS ORDERED: QUEtiapine FUMARATE 100 MG TABLET PO PRN (13:30)
[2019-11-18 16:56] VITALS: BP 116/74
[2019-11-18] MEDS ORDERED: QUEtiapine FUMARATE 200 MG TABLET PO SCH (21:00)
[2019-11-19] MEDS: MULTIVITAMINS WITH MINERALS, THERAPEUTIC TABLET PO SCH (08:30)
[2019-11-19] MEDS: FOLIC ACID 1 MG TABLET PO SCH (08:30)
[2019-11-19] MEDS: THIAMINE HCL 100 MG TABLET PO SCH (08:30)
[2019-11-19] MEDS: AMANTADINE HCL 100 MG CAPSULE PO SCH (08:30)
[2019-11-19 08:33] VITALS: BP 101/71
[2019-11-19] MEDS ORDERED: ARIPiprazole 10 MG TABLET PO SCH (09:00)
[2019-11-19] MEDS ORDERED: BusPIRone HCL 10 MG TABLET PO SCH (09:00)
[2019-12-15] MEDS ORDERED: ARIPiprazole ER SUSPENSION 400 MG PRE-FILLED DUAL CHAMBER SYRINGE IM SCH (09:00)
== END 2019-11-19 12:00 | disposition home or self-care (01) | DRG 885 ==
LOC: EMS 15:06 → 3EX 21:00
PROVIDERS: ADMIT Psychiatry & Neurology Psychiatry; ATTEND Psychiatry & Neurology Psychiatry
DX: F31.4 Bipolar disorder, current episode depressed, severe, without psychotic features (principal); R45.851 Suicidal ideations; E78.5 Hyperlipidemia, unspecified; I10 Essential (primary) hypertension; K21.9 Gastro-esophageal reflux disease without esophagitis; K59.00 Constipation, unspecified; Z85.3 Personal history of malignant neoplasm of breast; Z91.14 Patient's other noncompliance with medication regimen; Z88.0 Allergy status to penicillin; Z91.09 Other allergy status, other than to drugs and biological substances
CPT/HCPCS: 83036; 84439; 84443; 86592; G0378; G0480; J0401

== ENCOUNTER → 2020-12-05 | Outpatient (CLI) | payer MEDICARE, OTHER ==
[~2020-12-05] MED LIST changes: -ARIP10TA8 PO; -ARIP300S IM; +ARIP400S3 IM; +BUSP10TA23 PO; -CLON.5 PO; -DOCU-342 PO; -LISI-662 PO; -MVITFE PO; +NALT50TA PO; -OMEP20 PO; +QUET200T29 PO; -TAMO10 PO
[2020-12-05 16:36] LABS: HEMOGLOBIN A1C 5.5 % (3.8-5.6)
[2020-12-05 17:20] LABS: CHOL/HDL RATIO 6.3 (3.9-5.7)
== END | disposition home or self-care (01) ==
LOC: LABPV 14:26
PROVIDERS: ATTEND Psychiatry & Neurology Psychiatry
DX: F31.32 Bipolar disorder, current episode depressed, moderate (principal); E11.9 Type 2 diabetes mellitus without complications
CPT/HCPCS: 82947; 83036

== ENCOUNTER → 2021-10-31 | Outpatient (CLI) | payer MEDICARE, OTHER ==
[~2021-10-31] MED LIST changes: -AMAN-6 PO; +AMAN100C14 PO; -QUET200T29 PO; +QUET200T30 PO
[2021-10-31 15:03] LABS: HEMOGLOBIN A1C 5.7 % (3.8-5.6)
[2021-10-31 15:10] LABS: CHOL/HDL RATIO 3.4 (3.9-5.7)
== END | disposition home or self-care (01) ==
LOC: LABMN 13:32
PROVIDERS: ATTEND Psychiatry & Neurology Psychiatry
DX: F31.32 Bipolar disorder, current episode depressed, moderate (principal); E11.9 Type 2 diabetes mellitus without complications
CPT/HCPCS: 80061; 82947; 83036

== ENCOUNTER → 2022-10-30 | Outpatient (CLI) | payer MEDICARE, MEDICAID ==
[~2022-10-30] MED LIST changes: +AMAN-24 PO; -AMAN100C14 PO
[2022-10-30 15:06] LABS: CHOL/HDL RATIO 2.8 (3.9-5.7)
[2022-10-30 15:20] LABS: HEMOGLOBIN A1C 5.5 % (3.8-5.6)
== END | disposition home or self-care (01) ==
LOC: LABMN 11:35
PROVIDERS: ATTEND Psychiatry & Neurology Psychiatry
DX: Z13.1 Encounter for screening for diabetes mellitus (principal); F25.0 Schizoaffective disorder, bipolar type; R73.9 Hyperglycemia, unspecified; E78.5 Hyperlipidemia, unspecified
CPT/HCPCS: 80061; 82947; 83036

== ENCOUNTER → 2024-01-21 | Outpatient (CLI) | payer MEDICARE, OTHER ==
[2024-01-21 15:07] LABS: HEMOGLOBIN A1C 5.7 % (3.8-5.6)
[2024-01-21 15:17] LABS: CHOL/HDL RATIO 3.5 (3.9-5.7)
== END | disposition home or self-care (01) ==
LOC: LABMN 11:35
PROVIDERS: ATTEND Psychiatry & Neurology Psychiatry
DX: F31.32 Bipolar disorder, current episode depressed, moderate (principal); E11.9 Type 2 diabetes mellitus without complications
CPT/HCPCS: 80061; 82947; 83036